=== PATIENT | female | born 1960 | race Caucasian/White ===

== ENCOUNTER 2018-01-05 22:54 | Emergency (ER) | payer OTHER ==
[~2018-01-05] VITALS: Ht 162.6 cm; Wt 40.8 kg
[~2018-01-05 22:54] MED LIST: Ativan1 MG PO; LEVFLO500 PO; Norco 5-325 Ta1 EACH PO; OXCA300 PO; QUETIAPINE FUMA50 MG PO; Risperidone3 MG PO; TRAZ100 PO
[2018-01-05 23:31] LABS: Influenza A Negative (NEGATIVE); Influenza B Negative (NEGATIVE)
[2018-01-06] MEDS ORDERED: Advair Hfa 230-12 GM (00:27)
[2018-01-06] MEDS ORDERED: Flonase 0.05% N16 GM (00:27)
[2018-01-06] MEDS ORDERED: [UNRECOGNIZED DRUG - REMARK] (00:28)
== END 2018-01-06 01:23 | disposition home or self-care (01) ==
LOC: ER 22:54
PROVIDERS: Emergency Medicine
DX: J06.9 Acute upper respiratory infection, unspecified (principal); F41.9 Anxiety disorder, unspecified; Z88.1 Allergy status to other antibiotic agents; Z79.899 Other long term (current) drug therapy
CPT/HCPCS: 71046; 87804; 99283

== ENCOUNTER 2018-01-17 11:03 | Emergency (ER) | payer OTHER ==
[~2018-01-17] VITALS: Ht 162.6 cm; Wt 40.8 kg
[~2018-01-17 11:03] MED LIST changes: +Advair Hfa 230-12 GM; +Flonase 0.05% N16 GM; +[UNRECOGNIZED DRUG - REMARK]
[2018-01-17] MEDS ORDERED: Zofran Odt4 MG SL (12:15)
== END 2018-01-17 12:25 | disposition home or self-care (01) ==
LOC: ER 11:03
DX: J06.9 Acute upper respiratory infection, unspecified (principal); J45.909 Unspecified asthma, uncomplicated; F41.9 Anxiety disorder, unspecified; Z88.8 Allergy status to other drugs, medicaments and biological substances; Z79.899 Other long term (current) drug therapy
CPT/HCPCS: 99282